=== PATIENT | female | born 1980 | race Caucasian/White ===

== ENCOUNTER → 2020-08-19 | Outpatient (CLI) | payer BC, OTHER ==
[~2020-08-19] MED LIST: BASAGLAR K100 UNIT/1 SQ; CIPRO500 MG PO; COLACE 100MG C100 MG PO; HUMALOG100 UNIT/2 SQ; IBU600 MG PO; IBUPROFEN800 MG PO; LANTUS100 UNIT/1 SQ; NORCO 5-325 TA1 EACH PO; NOVOLOG 10100 UNITS1 SQ; OMNICEF 300 MG300 MG PO; ZOFRAN4 MG PO
== END ==
LOC: RAD 10:40
DX: M79.672 Pain in left foot (principal); S92.512A Displaced fracture of proximal phalanx of left lesser toe(s), initial encounter for closed fracture
CPT/HCPCS: 73630

== ENCOUNTER → 2021-11-12 | Outpatient (CLI) | payer OTHER ==
[2021-11-12 09:27] LABS: RED BLOOD COUNT 4.73 M/UL (4.00-5.10); WHITE BLOOD COUNT 5.6 K/UL (4.5-11.0)
[2021-11-12 09:51] LABS: BUN/CREATININE RATIO 32 (0-10)
== END ==
LOC: LAB 08:32
PROVIDERS: Nurse Practitioner Family
DX: E10.9 Type 1 diabetes mellitus without complications (principal); E53.8 Deficiency of other specified B group vitamins; E55.9 Vitamin D deficiency, unspecified; E78.2 Mixed hyperlipidemia
CPT/HCPCS: 36415; 80053; 80061; 82043; 82570; 82607; 83036; 84443; 85025